=== PATIENT | female | born 1965 | race Caucasian/White ===

== ENCOUNTER → 2017-03-23 | Outpatient (CLI) | payer OTHER ==
[2017-03-23 16:51] LABS: ALANINE AMINOTRANSFERASE 27 U/L (9-52); ALBUMIN 4.3 g/dL (3.5-5.0); ALKALINE PHOSPHATASE 100 U/L (38-126); ANION GAP 12 (5-19); ASPARTATE AMINO TRANSFERASE 19 U/L (14-36); BILIRUBIN,DIRECT 0.4 mg/dL (0.0-0.4); BILIRUBIN,TOTAL 0.6 mg/dL (0.2-1.3); BLOOD UREA NITROGEN 9 mg/dL (7-20); CALCIUM 9.8 mg/dL (8.4-10.2); CARBON DIOXIDE 29 mmol/L (22-30); CHLORIDE 101 mmol/L (98-107); CHOLESTEROL 252.52 mg/dL (0-200); CREATINE KINASE 188 U/L (30-135); CREATININE RESULT 0.49 mg/dL (0.52-1.25); Direct HDL 72 mg/dL (>40); GLUCOSE 179 mg/dL (75-110); POTASSIUM 4.2 mmol/L (3.6-5.0); SODIUM 141.7 mmol/L (137-145); TOTAL PROTEIN 7.6 g/dL (6.3-8.2); TRIGLYCERIDES 135 mg/dL (<150)
[2017-03-23 17:03] LABS: DIRECT LDL 165 mg/dL (<100)
== END ==
LOC: OD 14:35
PROVIDERS: ATTEND Obstetrics & Gynecology
DX: I10 Essential (primary) hypertension (principal); E78.5 Hyperlipidemia, unspecified; E11.65 Type 2 diabetes mellitus with hyperglycemia
CPT/HCPCS: 36415; 80053; 80061; 81241; 82550

== ENCOUNTER → 2017-05-26 | Outpatient (CLI) | payer OTHER ==
[2017-05-26 14:15] LABS: ABSOLUTE EOSINOPHILS # (AUTO) 0.2 10^3/uL (0.0-0.6); ABSOLUTE LYMPHOCYTES (AUTO) 2.4 10^3/uL (0.5-4.7); ABSOLUTE MONOCYTES (AUTO) 0.5 10^3/uL (0.1-1.4); ABSOLUTE NEUT (AUTO) 5.4 10^3/uL (1.7-8.2); BASOPHILS % (AUTO) 0.6 % (0-2); EOSINOPHILS % (AUTO) 1.8 % (0-6); HEMATOCRIT 39.9 % (36.0-47.0); HEMOGLOBIN 13.8 g/dL (12.0-15.5); HGB HCT DIFFERENCE 1.5; LYMPHOCYTES % (AUTO) 27.8 % (13-45); MEAN CORPUSCULAR HEMOGLOBIN 28.9 pg (27.0-33.4); MEAN CORPUSCULAR HGB CONC 34.5 g/dL (32.0-36.0); MEAN CORPUSCULAR VOLUME 84 fl (80-97); MONOCYTES % (AUTO) 6.3 % (3-13); RED BLOOD COUNT 4.77 10^6/uL (3.72-5.28); RED CELL DISTRIBUTION WIDTH 13.4 % (11.5-14.0); SEGMENTED NEUTROPHILS % (AUTO) 63.5 % (42-78); WHITE BLOOD COUNT 8.5 10^3/uL (4.0-10.5)
[2017-05-26 14:30] LABS: ALANINE AMINOTRANSFERASE 30 U/L (9-52); ALBUMIN 4.4 g/dL (3.5-5.0); ALKALINE PHOSPHATASE 86 U/L (38-126); ANION GAP 15 (5-19); ASPARTATE AMINO TRANSFERASE 11 U/L (14-36); BILIRUBIN,DIRECT 0.4 mg/dL (0.0-0.4); BILIRUBIN,TOTAL 0.5 mg/dL (0.2-1.3); BLOOD UREA NITROGEN 10 mg/dL (7-20); CARBON DIOXIDE 28 mmol/L (22-30); CHLORIDE 101 mmol/L (98-107); GLUCOSE 205 mg/dL (75-110); POTASSIUM 4.1 mmol/L (3.6-5.0); SODIUM 143.7 mmol/L (137-145); TOTAL PROTEIN 6.9 g/dL (6.3-8.2)
--- NOTE | 2017-05-26 14:43 | RADIOLOGY REPORT (SQ) ---
EXAM DESCRIPTION: CHEST PA/LATERAL COMPLETED DATE/TIME: 05/26/2017 2:17 pm REASON FOR STUDY: CHEST PAIN, UNSPECIFIED COMPARISON: 06/12/2013 EXAM PARAMETERS: NUMBER OF VIEWS: two views TECHNIQUE: Digital Frontal and Lateral radiographic views of the chest acquired. RADIATION DOSE: NA LIMITATIONS: none FINDINGS: LUNGS AND PLEURA: No opacities, masses or pneumothorax. No pleural effusion. MEDIASTINUM AND HILAR STRUCTURES: No masses or contour abnormalities. HEART AND VASCULAR STRUCTURES: Heart normal size. No evidence for failure. BONES: No acute findings. HARDWARE: None in the chest. OTHER: No other significant finding. IMPRESSION: NO SIGNIFICANT RADIOGRAPHIC FINDING IN THE CHEST. TECHNICAL DOCUMENTATION: JOB ID: [id number] [employer]- All Rights Reserved
== END ==
LOC: OD 13:10
PROVIDERS: ATTEND Obstetrics & Gynecology
DX: R07.9 Chest pain, unspecified (principal); R10.9 Unspecified abdominal pain; I25.2 Old myocardial infarction
CPT/HCPCS: 36415; 71020; 80053; 84484; 85025; 85379

== ENCOUNTER → 2019-04-16 | Outpatient (CLI) | payer BC ==
[2019-04-16 14:13] LABS: ANION GAP 12 (5-19); BLOOD UREA NITROGEN 10 mg/dL (7-20); CALCIUM 9.9 mg/dL (8.4-10.2); CARBON DIOXIDE 28 mmol/L (22-30); CHLORIDE 101 mmol/L (98-107); GLUCOSE 233 mg/dL (75-110); POTASSIUM 3.9 mmol/L (3.6-5.0)
== END ==
LOC: LAB 13:35
PROVIDERS: ATTEND Orthopaedic Surgery
DX: E10.9 Type 1 diabetes mellitus without complications (principal)
CPT/HCPCS: 36415; 80048

== ENCOUNTER 2019-07-14 17:35 | Inpatient (IN) | payer BC, OTHER ==
[2019-07-14] MEDS ORDERED: DIPH/PERTUSS(ACELL)/TETANUS VAC/PF 0.5 ML SYR (>=10YO) IM ONE (20:24)
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
[2019-07-14 20:57] LABS: ABSOLUTE BASOPHILS # (AUTO) 0.1 10^3/uL (0.0-0.2); ABSOLUTE EOSINOPHILS # (AUTO) 0.2 10^3/uL (0.0-0.6); ABSOLUTE LYMPHOCYTES (AUTO) 1.7 10^3/uL (0.5-4.7); ABSOLUTE MONOCYTES (AUTO) 0.5 10^3/uL (0.1-1.4); ABSOLUTE NEUT (AUTO) 4.7 10^3/uL (1.7-8.2); BASOPHILS % (AUTO) 1.2 % (0-2); EOSINOPHILS % (AUTO) 2.4 % (0-6); HEMATOCRIT 39.3 % (36.0-47.0); HEMOGLOBIN 12.8 g/dL (12.0-15.5); LYMPHOCYTES % (AUTO) 23.7 % (13-45); MEAN CORPUSCULAR HEMOGLOBIN 27.7 pg (27.0-33.4); MEAN CORPUSCULAR HGB CONC 32.7 g/dL (32.0-36.0); MEAN CORPUSCULAR VOLUME 85 fl (80-97); MONOCYTES % (AUTO) 7.1 % (3-13); PLATELET COUNT 386 10^3/uL (150-450); RED BLOOD COUNT 4.65 10^6/uL (3.72-5.28); RED CELL DISTRIBUTION WIDTH 13.7 % (11.5-14.0); SEGMENTED NEUTROPHILS % (AUTO) 65.6 % (42-78); TOTAL CELLS COUNTED % (AUTO) 100 %; WHITE BLOOD COUNT 7.2 10^3/uL (4.0-10.5)
[2019-07-14 21:20] LABS: ANION GAP 9 (5-19); BLOOD UREA NITROGEN 16 mg/dL (7-20); CALCIUM 9.7 mg/dL (8.4-10.2); CARBON DIOXIDE 33 mmol/L (22-30); CHLORIDE 99 mmol/L (98-107); GLUCOSE 181 mg/dL (75-110); POTASSIUM 4.2 mmol/L (3.6-5.0)
--- NOTE | 2019-07-14 21:28 | RADIOLOGY REPORT (SQ) ---
3 VIEWS OF LEFT FOOT EXAM DATE: 07/14/2019 8:20 PM [facility] [employer] HISTORY: infection in 2nd toe; gas? fracture?. COMPARISON: None. FINDINGS: There is soft tissue swelling with subcutaneous air along the distal second digit. There is erosion and fracture of the second distal phalanx. There is also a subacute fracture of the first proximal phalanx mild surrounding bridging callus. No foreign body. IMPRESSION: 1. Acute fracture of the second distal phalanx with erosive changes and overlying soft tissue swelling and subcutaneous air, which may represent osteomyelitis. 2. Subacute fracture of the first proximal phalanx.
--- NOTE | 2019-07-14 21:29 | RADIOLOGY REPORT (SQ) ---
EXAM DESCRIPTION: XR HAND 3 OR MORE VIEWS COMPLETED DATE/TME: 07/14/2019 20:20 CLINICAL HISTORY: 54 years, Female, previous fracture, swelling COMPARISON: None. NUMBER OF VIEWS: Three TECHNIQUE: Frontal, oblique, and lateral radiographs were obtained. LIMITATIONS: None. FINDINGS: Mild radiocarpal joint arthrosis. Questionable curvilinear lucency traversing the base of the fifth metacarpal, seen only on the frontal projection. There may be a tiny curvilinear ossific fragment located about the lateral aspect of the fifth metacarpal base, also only seen on the frontal projection. No additional osseous anomalies. IMPRESSION: Questionable age-indeterminate nondisplaced fracture involving the fifth metacarpal base. Correlate with point tenderness. Mild radiocarpal joint arthrosis. copyright 2010 [employer]- All Rights Reserved
[2019-07-14] MEDS ORDERED: PIPERACILLIN/TAZOBACTAM 3.375 GM VIAL IV ONE (21:35)
[2019-07-14] MEDS ORDERED: MAG HYDROX/AL HYDROX/SIMETH SUSP 30 ML UDCUP PO PRN (22:53)
[2019-07-14] MEDS ORDERED: DEXTROSE 50%-WATER 25 GM/50 ML DISP.SYRIN IV PRN ×2 (22:53)
[2019-07-14] MEDS ORDERED: GLUCAGON,HUMAN RECOMB 1 MG INJ IM PRN (22:53)
[2019-07-14] MEDS ORDERED: DEXTROSE 40% GEL 15 GM TUBE PO PRN ×2 (22:53)
[2019-07-14] MEDS ORDERED: ACETAMINOPHEN 325 MG TABLET PO PRN (22:53)
[2019-07-14] MEDS ORDERED: IPRATROPIUM/ALBUTEROL 0.5-2.5 MG/3 ML AMPUL NEB PRN (22:53)
[2019-07-14] MEDS ORDERED: NORMAL SALINE 1000 ML 1,000 ML IV ONE (22:55)
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
[2019-07-14] MEDS ORDERED: VANCOMYCIN HCL INJ 1000 MG VIAL IV ONE (23:05)
[2019-07-14] MEDS ORDERED: INSULIN GLARGINE,HUM.REC.ANLOG 1,000 UNIT/10 ML VIAL SUBCUT ONE (23:45)
[2019-07-15] MEDS: INSULIN LISPRO 100 UNIT/ML 3 ML VIAL SUBCUT SCH ×5 (02:33→23:16)
[2019-07-15] MEDS: HEPARIN SOD (PORCINE) 5,000 UNIT/ML 1 ML VIAL SUBCUT SCH ×3 (05:02→21:21)
[2019-07-15 06:13] LABS: ABSOLUTE BASOPHILS # (AUTO) 0.1 10^3/uL (0.0-0.2); ABSOLUTE EOSINOPHILS # (AUTO) 0.2 10^3/uL (0.0-0.6); ABSOLUTE LYMPHOCYTES (AUTO) 1.7 10^3/uL (0.5-4.7); ABSOLUTE MONOCYTES (AUTO) 0.8 10^3/uL (0.1-1.4); BASOPHILS % (AUTO) 1.3 % (0-2); HEMATOCRIT 35.1 % (36.0-47.0); HEMOGLOBIN 11.7 g/dL (12.0-15.5); LYMPHOCYTES % (AUTO) 25.2 % (13-45); MEAN CORPUSCULAR HEMOGLOBIN 27.5 pg (27.0-33.4); MEAN CORPUSCULAR HGB CONC 33.2 g/dL (32.0-36.0); MEAN CORPUSCULAR VOLUME 83 fl (80-97); MONOCYTES % (AUTO) 11.6 % (3-13); PLATELET COUNT 298 10^3/uL (150-450); RED BLOOD COUNT 4.24 10^6/uL (3.72-5.28); RED CELL DISTRIBUTION WIDTH 13.6 % (11.5-14.0); SEGMENTED NEUTROPHILS % (AUTO) 58.9 % (42-78); TOTAL CELLS COUNTED % (AUTO) 100 %; WHITE BLOOD COUNT 6.8 10^3/uL (4.0-10.5)
[2019-07-15] MEDS ORDERED: KETOROLAC TROMETHAMINE INJ/PF 30 MG/1 ML SDV IV PRN (07:48)
[2019-07-15] MEDS ORDERED: HYDRALAZINE HCL INJ/PF 20 MG/1 ML SDV IV PRN (07:48)
[2019-07-15] MEDS ORDERED: MORPHINE SULFATE 10 MG/ML INJ IV PRN ×3 (07:48→12:36)
--- NOTE | 2019-07-15 07:48 | PDOC H&P ---
History of Present Illness Admission Date/PCP: 07/14/19 23:03 ARMANDO HERNANDEZ MD Patient complains of: Toe ulcer History of Present Illness: VERONICA SHEPHERD is a 54 year old female with a past medical history of diabetes, diabetic neuropathy, hypertension, opiate dependent chronic pain and depression. She presents with several weeks of nonhealing ulcer to her second toe of the left foot. She has been treated with ciprofloxacin without improvement developing necrotic exudate she is prompted to seek evaluation emergency room where she is found to have gas in the tissues by imaging. She started on empiric antibiotics, surgery consulted and referred to the hospitalist for admission. Past Medical History Cardiac Medical History: Reports: Myocardial Infarction, Hyperlipidema, Hypertension Pulmonary Medical History: Denies: Tuberculosis Endocrine Medical History: Reports: Diabetes Mellitus Type 2, Obesity Renal/ Medical History: Reports: Nephrolithiasis Psychiatric Medical History: Reports: Depression Past Surgical History Past Surgical History: Reports: Appendectomy, Cardiac Catheterization, Section - x1, Cholecystectomy, Coronary Stent, Hysterectomy, Orthopedic Surgery - R shoulder, L hand Social History Information Source: Patient Lives with: Family Smoking Status: Never Smoker Electronic Cigarette use?: No Frequency of Alcohol Use: None Hx Recreational Drug Use: No Hx Prescription Drug Abuse: No - Advance Directive Resuscitation Status: Full Code Family History Family History: CAD Parental Family History Reviewed: Yes Children Family History Reviewed: Yes Sibling(s) Family History Reviewed.: Yes Medication/Allergy Home Medications: Lisinopril [Prinivil 10 mg Tablet] 10 mg PO DAILY 06/12/13 Lovastatin [Altoprev] 20 mg PO QHS 06/12/13 Morphine Sulfate [Morphine Sulfate ER] 30 mg PO BID 06/12/13 Oxycodone HCl/Acetaminophen [Percocet 10-325 mg Tablet] 10 - 325 mg PO BIDP PRN 06/12/13 Sertraline HCl 50 mg PO DAILY 06/12/13 Atorvastatin Calcium [Lipitor 80 mg Tablet] 80 mg PO DAILY 07/14/19 Hydrochlorothiazide [Hydrodiuril 25 mg Tablet] 25 mg PO DAILY 07/14/19 Insulin Glargine,Hum.rec.anlog [Lantus Insulin 100 Unit/mL Insulin Pen] 100 mg SUBCUT QHS 07/14/19 Morphine Sulfate [Morphine Ir 30 mg Tablet] 30 mg PO TID 07/14/19 Oxycodone HCl/Acetaminophen [Percocet 10-325 mg Tablet] 10 mg PO BID 07/14/19 Sertraline HCl [Zoloft 50 mg Tablet] 50 mg PO DAILY 07/14/19 Allergies/Adverse Reactions: Iodinated Contrast Media [IV Dye, Iodine Containing] Allergy (Verified 06/12/13 20:53) Review of Systems Constitutional: ABSENT: chills, fever(s), headache(s), weight gain, weight loss Eyes: ABSENT: visual disturbances Ears: ABSENT: hearing changes Cardiovascular: ABSENT: chest pain, dyspnea on exertion, edema, orthropnea, palpitations Respiratory: ABSENT: cough, hemoptysis Gastrointestinal: ABSENT: abdominal pain, constipation, diarrhea, hematemesis, hematochezia, nausea, vomiting Genitourinary: ABSENT: dysuria, hematuria Musculoskeletal: ABSENT: joint swelling Integumentary: ABSENT: rash, wounds Neurological: ABSENT: abnormal gait, abnormal speech, confusion, dizziness, focal weakness, syncope Psychiatric: ABSENT: anxiety, depression, homidical ideation, suicidal ideation Endocrine: ABSENT: cold intolerance, heat intolerance, polydipsia, polyuria Hematologic/Lymphatic: ABSENT: easy bleeding, easy bruising Physical Exam Vital Signs: Temp Pulse Resp BP Pulse Ox 98.2 F 65 16 143/79 H 98 07/15/19 00:54 07/15/19 02:00 07/15/19 00:54 07/15/19 00:54 07/15/19 00:54 Intake & Output 07/13/19 07/14/19 07/15/19 11:59 11:59 11:59 Intake Total 0 Balance 0 Weight 109.4 kg General appearance: PRESENT: mild distress, well-developed, well-nourished Head exam: PRESENT: atraumatic, normocephalic Eye exam: PRESENT: conjunctiva pink, EOMI, PERRLA. ABSENT: scleral icterus Ear exam: PRESENT: normal external ear exam Mouth exam: PRESENT: moist, tongue midline Neck exam: ABSENT: carotid bruit, JVD, lymphadenopathy, thyromegaly Respiratory exam: PRESENT: clear to auscultation xiomara. ABSENT: rales, rhonchi, wheezes Cardiovascular exam: PRESENT: RRR. ABSENT: diastolic murmur, rubs, systolic murmur Pulses: PRESENT: normal dorsalis pedis pul Vascular exam: PRESENT: normal capillary refill GI/Abdominal exam: PRESENT: normal bowel sounds, soft. ABSENT: distended, guarding, mass, organolmegaly, rebound, tenderness Rectal exam: PRESENT: deferred Extremities exam: PRESENT: full ROM, other - Plantar surface of the left second toe with a large necrotic ulcer and purulent discharge.. ABSENT: calf tenderness, clubbing, pedal edema Neurological exam: PRESENT: alert, awake, oriented to person, oriented to place, oriented to time, oriented to situation, CN II-XII grossly intact. ABSENT: motor sensory deficit Psychiatric exam: PRESENT: appropriate affect, normal mood. ABSENT: homicidal ideation, suicidal ideation Skin exam: PRESENT: dry, intact, warm. ABSENT: cyanosis, rash Results Laboratory Results: 07/15/19 05:51 07/14/19 20:43 07/14/19 07/14/19 07/15/19 20:43 20:43 05:51 WBC 7.2 6.8 RBC 4.65 4.24 Hgb 12.8 11.7 L Hct 39.3 35.1 L MCV 85 83 MCH 27.7 27.5 MCHC 32.7 33.2 RDW 13.7 13.6 Plt Count 386 298 Seg Neutrophils % 65.6 58.9 Sodium 141.1 Potassium 4.2 Chloride 99 Carbon Dioxide 33 H Anion Gap 9 BUN 16 Creatinine 0.68 Est GFR ( Amer) > 60 Glucose 181 H Calcium 9.7 Impressions: Foot X-Ray 07/14/19 20:20 IMPRESSION: 1. Acute fracture of the second distal phalanx with erosive changes and overlying soft tissue swelling and subcutaneous air, which may represent osteomyelitis. 2. Subacute fracture of the first proximal phalanx. Hand X-Ray 07/14/19 20:20 IMPRESSION: Questionable age-indeterminate nondisplaced fracture involving the fifth metacarpal base. Correlate with point tenderness. Mild radiocarpal joint arthrosis. copyright 2010 [employer]- All Rights Reserved Assessment and Plan - Diagnosis (1) Diabetes Is this a current diagnosis for this admission?: Yes Plan: Hold metformin, outpatient regiment of Humalog and Lantus (2) Hypertension Is this a current diagnosis for this admission?: Yes Plan: Outpatient regiment with hydralazine PRN (3) Chronic pain Is this a current diagnosis for this admission?: Yes Plan: Limit narcotics as unclear outpatient use. Trial Toradol (4) Osteomyelitis Qualifiers: Osteomyelitis type: unspecified type Osteomyelitis location: foot Laterality: left Qualified Code(s): M86.9 - Osteomyelitis, unspecified Is this a current diagnosis for this admission?: Yes Plan: Defer to surgery - Time Time Spent with patient: 25-34 minutes - Inpatient Certification Medical Necessity: Need Close Monitoring Due to Risk of Patient Decompensation
[2019-07-15] MEDS: HYDROCHLOROTHIAZIDE 25 MG TABLET PO SCH (09:34)
[2019-07-15] MEDS: SERTRALINE HCL 50 MG TABLET PO SCH (09:43)
[2019-07-15] MEDS: INSULIN GLARGINE,HUM.REC.ANLOG 1,000 UNIT/10 ML VIAL SUBCUT SCH ×2 (09:48→21:25)
[2019-07-15] MEDS ORDERED: OXYCODONE HCL PO SCH (10:00)
[2019-07-15] MEDS ORDERED: ACETAMINOPHEN PO SCH (10:00)
[2019-07-15] MEDS ORDERED: OXYCODONE-ACETAMINOPHEN 5-325 MG TABLET PO SCH (10:00)
[2019-07-15] MEDS ORDERED: OXYCODONE HCL IR 5 MG TABLET PO SCH (10:00)
--- NOTE | 2019-07-15 10:47 | RADIOLOGY REPORT (SQ) ---
EXAM DESCRIPTION: CHEST SINGLE VIEW COMPLETED DATE/TIME: 07/15/2019 10:40 am REASON FOR STUDY: chest congestion COMPARISON: None. NUMBER OF VIEWS: One view. TECHNIQUE: Single frontal radiographic view of the chest acquired. LIMITATIONS: None. FINDINGS: LUNGS AND PLEURA: No opacities, masses or pneumothorax. No pleural effusion. MEDIASTINUM AND HILAR STRUCTURES: No masses. Contour normal. HEART AND VASCULAR STRUCTURES: Heart normal in size. Normal vasculature. BONES: No acute findings. HARDWARE: None in the chest. OTHER: No other significant finding. IMPRESSION: NO SIGNIFICANT RADIOGRAPHIC FINDING IN THE CHEST. TECHNICAL DOCUMENTATION: JOB ID: [id number] [employer]- All Rights Reserved Reading location - IP/workstation name: [email or web address]
[2019-07-15] MEDS ORDERED: MIDAZOLAM 2 MG/2 ML INJ ONE (11:09)
[2019-07-15] MEDS ORDERED: FENTANYL CITRATE INJ/PF 100 MCG/2 ML AMPUL ONE ×2 (11:09→12:43)
[2019-07-15] MEDS ORDERED: PROPOFOL INJ 200 MG/20 ML VIAL IV ONE (11:09)
--- NOTE | 2019-07-15 11:13 | PDOC PROGRESS REPORT ---
Subjective Progress Note for:: 07/15/19 Subjective:: This is a 54 year old female with a past medical history of diabetes, diabetic neuropathy, hypertension, opiate dependent chronic pain and depression who presented with several weeks of nonhealing ulcer to her second toe of the left foot. She has failed outpatient ciprofloxacin. X-ray shows a toe fracture and possible osteomyelitis. She received vancomycin and Zosyn on admission patient was evaluated by surgery and is scheduled for amputation. No acute event overnight. Upon encounter this morning, she appears comfortable. Denies chest pain or shortness of breath. She does complain of sore throat. She is going for toe amputation soon. Reason For Visit: FOOT CELLULITIS,DM,HTN Physical Exam Vital Signs: Temp Pulse Resp BP Pulse Ox 98.7 F 71 17 143/79 H 96 07/15/19 08:53 07/15/19 08:53 07/15/19 08:53 07/15/19 08:53 07/15/19 08:53 Intake & Output 07/14/19 07/15/19 07/16/19 06:59 06:59 06:59 Intake Total 0 Balance 0 Weight 241 lb 2.971 oz General appearance: PRESENT: no acute distress, well-developed, well-nourished Head exam: PRESENT: atraumatic, normocephalic Eye exam: PRESENT: conjunctiva pink, EOMI, PERRLA. ABSENT: scleral icterus Ear exam: PRESENT: normal external ear exam Mouth exam: PRESENT: moist, tongue midline Neck exam: ABSENT: carotid bruit, JVD, lymphadenopathy, thyromegaly Respiratory exam: PRESENT: clear to auscultation xiomara. ABSENT: rales, rhonchi, wheezes Cardiovascular exam: PRESENT: RRR. ABSENT: diastolic murmur, rubs, systolic murmur Pulses: PRESENT: normal dorsalis pedis pul GI/Abdominal exam: PRESENT: normal bowel sounds, soft. ABSENT: distended, guarding, mass, organolmegaly, rebound, tenderness Rectal exam: PRESENT: deferred Musculoskeletal exam: PRESENT: other - Grossly swollen and tender second toe, left foot with chronic ulcer Neurological exam: PRESENT: alert, awake, oriented to person, oriented to place, oriented to time, oriented to situation, CN II-XII grossly intact. ABSENT: motor sensory deficit Results Laboratory Results: 07/15/19 05:51 07/14/19 20:43 07/14/19 07/14/19 07/15/19 20:43 20:43 05:51 WBC 7.2 6.8 RBC 4.65 4.24 Hgb 12.8 11.7 L Hct 39.3 35.1 L MCV 85 83 MCH 27.7 27.5 MCHC 32.7 33.2 RDW 13.7 13.6 Plt Count 386 298 Seg Neutrophils % 65.6 58.9 Sodium 141.1 Potassium 4.2 Chloride 99 Carbon Dioxide 33 H Anion Gap 9 BUN 16 Creatinine 0.68 Est GFR ( Amer) > 60 Glucose 181 H Calcium 9.7 Impressions: Foot X-Ray 07/14/19 20:20 IMPRESSION: 1. Acute fracture of the second distal phalanx with erosive changes and overlying soft tissue swelling and subcutaneous air, which may represent osteomyelitis. 2. Subacute fracture of the first proximal phalanx. Hand X-Ray 07/14/19 20:20 IMPRESSION: Questionable age-indeterminate nondisplaced fracture involving the fifth metacarpal base. Correlate with point tenderness. Mild radiocarpal joint arthrosis. copyright 2011 [employer]- All Rights Reserved Chest X-Ray 07/15/19 00:00 IMPRESSION: NO SIGNIFICANT RADIOGRAPHIC FINDING IN THE CHEST. Assessment and Plan - Diagnosis (1) Osteomyelitis Qualifiers: Osteomyelitis type: unspecified type Osteomyelitis location: foot Laterality: left Qualified Code(s): M86.9 - Osteomyelitis, unspecified Is this a current diagnosis for this admission?: Yes Plan: X-ray shows a toe fracture and possible osteomyelitis. She received vancomycin and Zosyn on admission patient was evaluated by surgery and is going for a toe a mputation soon. (2) Diabetes Is this a current diagnosis for this admission?: Yes Plan: Continue Humalog and Lantus. Will check an A1c. (3) Hypertension Is this a current diagnosis for this admission?: Yes Plan: Resume home meds. (4) Toe fracture, left Qualifiers: Encounter type: initial encounter Toe: lesser toe Fracture type: closed Phalanx: unspecified phalanx Fracture alignment: nondisplaced Qualified Code(s): S92.505A - Nondisplaced unspecified fracture of left lesser toe(s), initial encounter for closed fracture Is this a current diagnosis for this admission?: Yes - Time Time Spent with patient: 25-34 minutes
[2019-07-15] MEDS ORDERED: LIDOCAINE 1% INJ-PF (10 MG/ML) 30 ML SDV ONE (11:23)
[2019-07-15] MEDS ORDERED: BUPIVACAINE HCL 0.5 % INJ/PF 30 ML SDV ONE (11:23)
[2019-07-15] MEDS ORDERED: BUPIVACAINE HCL 0.25 % INJ/PF (2.5 MG/1 ML) 30 ML VIAL ONE (11:23)
[2019-07-15] MEDS ORDERED: OXYCODONE-ACETAMINOPHEN 5-325 MG TABLET PO PRN ×2 (11:48)
[2019-07-15] MEDS ORDERED: PROMETHAZINE HCL INJ 25 MG/1 ML VIAL IV PRN ×2 (11:48)
[2019-07-15] MEDS ORDERED: ONDANSETRON HCL INJ/PF 4 MG/2 ML SDV IV PRN (11:48)
[2019-07-15] MEDS ORDERED: DIPHENHYDRAMINE HCL 50 MG/ML VIAL IV PRN (11:48)
[2019-07-15] MEDS ORDERED: MEPERIDINE HCL/PF INJ 25 MG/1 ML DISP.SYRIN IV PRN (11:48)
[2019-07-15] MEDS ORDERED: FENTANYL CITRATE INJ/PF 100 MCG/2 ML AMPUL IV PRN ×3 (11:48)
--- NOTE | 2019-07-15 12:02 | EKG REPORT ---
SEVERITY:- NORMAL ECG - SINUS RHYTHM : Confirmed by: Joann Fournier MD 15-Jul-2019 12:01:38
[2019-07-15] MEDS ORDERED: VANCOMYCIN HCL 1,000 MG in DEXTROSE 5%-WATER 250 ML IV ONE (12:30)
--- NOTE | 2019-07-15 12:43 | PDOC PROGRESS REPORT ---
Subjective Progress Note for:: 07/15/19 Subjective:: 54-year-old female with diabetes and a left second toe ulcer. She has evidence of necrosis, and purulent drainage from the toe. She has scheduled for surgery today. She has no other complaints. Reason For Visit: FOOT CELLULITIS,DM,HTN Physical Exam Vital Signs: Temp Pulse Resp BP Pulse Ox 98.7 F 71 17 143/79 H 96 07/15/19 08:53 07/15/19 08:53 07/15/19 08:53 07/15/19 08:53 07/15/19 08:53 Intake & Output 07/14/19 07/15/19 07/16/19 06:59 06:59 06:59 Intake Total 0 1000 Balance 0 1000 Weight 109.4 kg General appearance: PRESENT: no acute distress, cooperative Head exam: PRESENT: atraumatic, normocephalic Eye exam: PRESENT: EOMI, PERRLA. ABSENT: scleral icterus Mouth exam: PRESENT: moist, neck supple Neck exam: ABSENT: tenderness, thyromegaly, tracheal deviation Respiratory exam: ABSENT: chest wall tenderness Cardiovascular exam: PRESENT: RRR Pulses: PRESENT: normal radial pulses GI/Abdominal exam: PRESENT: soft. ABSENT: distended, firm, tenderness Rectal exam: PRESENT: deferred Extremities exam: PRESENT: other - Ulcer to the distal left second toe. Purulent drainage is evident on examination. There is necrotic appearing tissue present. Neurological exam: PRESENT: alert, awake, oriented to person, oriented to place, oriented to time, oriented to situation, CN II-XII grossly intact. ABSENT: motor sensory deficit Psychiatric exam: ABSENT: agitated, anxious, depressed Focused psych exam: ABSENT: delusional Skin exam: ABSENT: cyanosis, jaundice Results Laboratory Results: 07/15/19 05:51 07/14/19 20:43 07/14/19 07/14/19 07/15/19 20:43 20:43 05:51 WBC 7.2 6.8 RBC 4.65 4.24 Hgb 12.8 11.7 L Hct 39.3 35.1 L MCV 85 83 MCH 27.7 27.5 MCHC 32.7 33.2 RDW 13.7 13.6 Plt Count 386 298 Seg Neutrophils % 65.6 58.9 Sodium 141.1 Potassium 4.2 Chloride 99 Carbon Dioxide 33 H Anion Gap 9 BUN 16 Creatinine 0.68 Est GFR ( Amer) > 60 Glucose 181 H Calcium 9.7 Impressions: Foot X-Ray 07/14/19 20:20 IMPRESSION: 1. Acute fracture of the second distal phalanx with erosive changes and overlying soft tissue swelling and subcutaneous air, which may represent osteomyelitis. 2. Subacute fracture of the first proximal phalanx. Hand X-Ray 07/14/19 20:20 IMPRESSION: Questionable age-indeterminate nondisplaced fracture involving the fifth metacarpal base. Correlate with point tenderness. Mild radiocarpal joint arthrosis. copyright 2010 [employer]- All Rights Reserved Chest X-Ray 07/15/19 00:00 IMPRESSION: NO SIGNIFICANT RADIOGRAPHIC FINDING IN THE CHEST. Assessment & Plan - Diagnosis (1) Diabetic infection of left foot Is this a current diagnosis for this admission?: Yes - Time Time Spent with patient: Less than 15 minutes - Plan Summary Plan Summary: This is a 54-year-old female with evidence of ongoing infection of the left second toe. It is involving the entire second toe, but does not extend extensively onto the foot. I have recommended the left second toe amputation. She has agreed to this. Risks/benefits discussed, informed consent obtained, and all questions answered.
[2019-07-15] MEDS ORDERED: VANCOMYCIN HCL 0 MG in DEXTROSE 5%-WATER 250 ML IV NR (12:45)
--- NOTE | 2019-07-15 12:47 | Operative Report ---
Nonrecallable Operative Report DATE OF SURGERY: 07/15/19 PREOPERATIVE DIAGNOSIS: Infection of the left second toe POSTOPERATIVE DIAGNOSIS: Infection of left second toe, with evidence of osteomyelitis at surgery. OPERATION: Left second toe amputation (ray amputation). SURGEON: RACHEL AMIN ANESTHESIA: LMAC TISSUE REMOVED OR ALTERED: Left second toe deep tissue culture COMPLICATIONS: None apparent ESTIMATED BLOOD LOSS: Minimal PROCEDURE: Drains/implants: 4 x 4 packing as a wick. Procedure in detail: After informed consent was obtained, the patient was brought to the operating room and laid in the supine position. The area of the left foot was prepped and draped in a normal sterile fashion. An elliptical i ncision was created around the toe, extending onto the dorsum of the foot. Dissection was carried through the subcutaneous tissues to the joint. The toe was disarticulated from the joint, and removed from the patient. Next, the incision was carried cranially. The metatarsal head was divided using the large bone cutters. The metatarsal bone appeared healthy, without sign of osteomyelitis or infection. The distal toe was opened on the back table, and a deep tissue culture was sent. There was evidence of osteomyelitis at the distal aspect of the left second toe. The subcutaneous tissues were loosely approximated using 2-0 Vicryl suture. A wick was placed into the wound. A dressing was then placed, and the procedure was concluded. All sponge, instrument, and needle counts were correct x2. Condition: Stable.
[2019-07-15] MEDS ORDERED: ACETAMINOPHEN 1,000 MG/100 ML RTUPB IV ONE (13:17)
[2019-07-15] MEDS ORDERED: KETOROLAC TROMETHAMINE INJ/PF 30 MG/1 ML SDV ONE (13:17)
[2019-07-15] MEDS: KETOROLAC TROMETHAMINE INJ/PF 30 MG/1 ML SDV IV SCH ×2 (14:59→21:26)
[2019-07-15] MEDS: LISINOPRIL 10 MG TABLET PO SCH (15:04)
[2019-07-15] MEDS ORDERED: VANCOMYCIN HCL 1,250 MG in DEXTROSE 5%-WATER 250 ML IV SCH (18:00)
[2019-07-15] MEDS: HYDROCODONE/ACETAMINOPHEN 10-325 MG TABLET PO PRN (19:41)
[2019-07-15] MEDS: ATORVASTATIN CALCIUM 80 MG TABLET PO SCH (21:25)
[2019-07-15] MEDS: FAMOTIDINE 20 MG TABLET PO SCH (21:25)
[2019-07-16] MEDS: HEPARIN SOD (PORCINE) 5,000 UNIT/ML 1 ML VIAL SUBCUT SCH ×3 (05:21→21:37)
[2019-07-16] MEDS: VANCOMYCIN HCL 1,250 MG in DEXTROSE 5%-WATER 250 ML IV SCH ×2 (05:24→17:13)
[2019-07-16] MEDS: KETOROLAC TROMETHAMINE INJ/PF 30 MG/1 ML SDV IV SCH ×3 (05:24→21:41)
[2019-07-16 06:02] LABS: ABSOLUTE BASOPHILS # (AUTO) 0.1 10^3/uL (0.0-0.2); ABSOLUTE EOSINOPHILS # (AUTO) 0.2 10^3/uL (0.0-0.6); ABSOLUTE LYMPHOCYTES (AUTO) 1.9 10^3/uL (0.5-4.7); ABSOLUTE MONOCYTES (AUTO) 0.6 10^3/uL (0.1-1.4); ABSOLUTE NEUT (AUTO) 3.8 10^3/uL (1.7-8.2); BASOPHILS % (AUTO) 1.3 % (0-2); EOSINOPHILS % (AUTO) 3.7 % (0-6); HEMATOCRIT 34.6 % (36.0-47.0); HEMOGLOBIN 11.5 g/dL (12.0-15.5); MEAN CORPUSCULAR HEMOGLOBIN 27.7 pg (27.0-33.4); MEAN CORPUSCULAR HGB CONC 33.1 g/dL (32.0-36.0); MEAN CORPUSCULAR VOLUME 84 fl (80-97); MONOCYTES % (AUTO) 9.7 % (3-13); PLATELET COUNT 295 10^3/uL (150-450); RED BLOOD COUNT 4.15 10^6/uL (3.72-5.28); RED CELL DISTRIBUTION WIDTH 13.6 % (11.5-14.0); SEGMENTED NEUTROPHILS % (AUTO) 57.3 % (42-78); TOTAL CELLS COUNTED % (AUTO) 100 %; WHITE BLOOD COUNT 6.6 10^3/uL (4.0-10.5)
[2019-07-16] MEDS: INSULIN LISPRO 100 UNIT/ML 3 ML VIAL SUBCUT SCH ×4 (06:56→21:42)
[2019-07-16 08:33] LABS: ANION GAP 7 (5-19); BLOOD UREA NITROGEN 16 mg/dL (7-20); CALCIUM 8.5 mg/dL (8.4-10.2); CARBON DIOXIDE 30 mmol/L (22-30); CHLORIDE 104 mmol/L (98-107); GLUCOSE 128 mg/dL (75-110); POTASSIUM 3.9 mmol/L (3.6-5.0)
[2019-07-16] MEDS: INSULIN GLARGINE,HUM.REC.ANLOG 1,000 UNIT/10 ML VIAL SUBCUT SCH ×2 (09:10→21:42)
[2019-07-16] MEDS: LISINOPRIL 10 MG TABLET PO SCH (09:11)
[2019-07-16] MEDS: FAMOTIDINE 20 MG TABLET PO SCH ×2 (09:11→21:42)
[2019-07-16] MEDS: HYDROCODONE/ACETAMINOPHEN 10-325 MG TABLET PO PRN ×2 (09:11→17:12)
[2019-07-16] MEDS: SERTRALINE HCL 50 MG TABLET PO SCH (09:12)
[2019-07-16] MEDS: HYDROCHLOROTHIAZIDE 25 MG TABLET PO SCH (09:12)
--- NOTE | 2019-07-16 10:40 | PDOC PROGRESS REPORT ---
Subjective Progress Note for:: 07/16/19 Subjective:: Patient feels better, scared to look at her foot. Reason For Visit: FOOT CELLULITIS,DM,HTN Physical Exam Vital Signs: Temp Pulse Resp BP Pulse Ox 97.6 F 66 15 135/86 H 97 07/16/19 07:32 07/16/19 07:32 07/16/19 07:32 07/16/19 07:32 07/16/19 07:32 Intake & Output 07/15/19 07/16/19 07/17/19 06:59 06:59 06:59 Intake Total 0 2780 Output Total 5 Balance 0 2775 Weight 109.4 kg General appearance: PRESENT: no acute distress Musculoskeletal exam: PRESENT: other - Foot dressing removed. Operative site clean, no foul smell or drainage. Packing removed. Operative site irrigated with saline, and gently repacked with portion of Xeroform. 4 x 4's Kerlix reapplied. Results Laboratory Results: 07/16/19 05:33 07/16/19 05:33 07/16/19 07/16/19 05:33 05:33 WBC 6.6 RBC 4.15 Hgb 11.5 L Hct 34.6 L MCV 84 MCH 27.7 MCHC 33.1 RDW 13.6 Plt Count 295 Seg Neutrophils % 57.3 Sodium 140.7 Potassium 3.9 Chloride 104 Carbon Dioxide 30 Anion Gap 7 BUN 16 Creatinine 0.63 Est GFR ( Amer) > 60 Glucose 128 H Calcium 8.5 Impressions: Foot X-Ray 07/14/19 20:20 IMPRESSION: 1. Acute fracture of the second distal phalanx with erosive changes and overlying soft tissue swelling and subcutaneous air, which may represent osteomyelitis. 2. Subacute fracture of the first proximal phalanx. Hand X-Ray 07/14/19 20:20 IMPRESSION: Questionable age-indeterminate nondisplaced fracture involving the fifth metacarpal base. Correlate with point tenderness. Mild radiocarpal joint arthrosis. copyright 2011 [employer]- All Rights Reserved Chest X-Ray 07/15/19 00:00 IMPRESSION: NO SIGNIFICANT RADIOGRAPHIC FINDING IN THE CHEST. Assessment & Plan - Diagnosis (1) Diabetic infection of left foot Is this a current diagnosis for this admission?: Yes Plan: Impression: Patient is 1 day status post left second toe amputation, with wound partially closed, doing well, no signs of persisting sepsis. Recommendations: 1. Start dressing changes; ordered today 2. We will get patient up with surgical sandal left foot. 3. Anticipate discharge home in the next 24 to 48hours from a surgical standpoint - Time Time Spent with patient: 15-24 minutes Smoking Cessation Education: 3 to 10 minutes
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
[2019-07-16] MEDS: ATORVASTATIN CALCIUM 80 MG TABLET PO SCH (21:42)
[2019-07-17] MEDS: VANCOMYCIN HCL 1,250 MG in DEXTROSE 5%-WATER 250 ML IV SCH (05:11)
[2019-07-17] MEDS: HEPARIN SOD (PORCINE) 5,000 UNIT/ML 1 ML VIAL SUBCUT SCH (05:11)
[2019-07-17] MEDS: KETOROLAC TROMETHAMINE INJ/PF 30 MG/1 ML SDV IV SCH (05:12)
[2019-07-17 06:31] LABS: ABSOLUTE BASOPHILS # (AUTO) 0.1 10^3/uL (0.0-0.2); ABSOLUTE EOSINOPHILS # (AUTO) 0.4 10^3/uL (0.0-0.6); ABSOLUTE LYMPHOCYTES (AUTO) 1.9 10^3/uL (0.5-4.7); ABSOLUTE MONOCYTES (AUTO) 0.6 10^3/uL (0.1-1.4); ABSOLUTE NEUT (AUTO) 4.9 10^3/uL (1.7-8.2); BASOPHILS % (AUTO) 0.7 % (0-2); EOSINOPHILS % (AUTO) 4.8 % (0-6); HEMOGLOBIN 11.7 g/dL (12.0-15.5); LYMPHOCYTES % (AUTO) 23.6 % (13-45); MEAN CORPUSCULAR HEMOGLOBIN 27.7 pg (27.0-33.4); MEAN CORPUSCULAR HGB CONC 33.4 g/dL (32.0-36.0); MEAN CORPUSCULAR VOLUME 83 fl (80-97); PLATELET COUNT 313 10^3/uL (150-450); RED BLOOD COUNT 4.22 10^6/uL (3.72-5.28); RED CELL DISTRIBUTION WIDTH 13.6 % (11.5-14.0); SEGMENTED NEUTROPHILS % (AUTO) 62.9 % (42-78); TOTAL CELLS COUNTED % (AUTO) 100 %; WHITE BLOOD COUNT 7.9 10^3/uL (4.0-10.5)
--- NOTE | 2019-07-17 08:36 | PDOC PROGRESS REPORT ---
Subjective Progress Note for:: 07/17/19 Reason For Visit: FOOT CELLULITIS,DM,HTN left 2nd toe diabetic infection Physical Exam Vital Signs: Temp Pulse Resp BP Pulse Ox 98.2 F 61 18 107/41 L 100 07/17/19 00:00 07/17/19 07:00 07/17/19 00:00 07/17/19 00:00 07/17/19 00:00 Intake & Output 07/16/19 07/17/19 07/18/19 06:59 06:59 06:59 Intake Total 2780 1350 Output Total 5 Balance 2775 1350 Weight 110.1 kg General appearance: PRESENT: no acute distress Head exam: PRESENT: normocephalic Eye exam: PRESENT: EOMI Ear exam: PRESENT: normal external ear exam Mouth exam: PRESENT: moist Neck exam: PRESENT: full ROM Respiratory exam: PRESENT: clear to auscultation xiomara Cardiovascular exam: PRESENT: RRR Pulses: PRESENT: normal radial pulses, normal femoral pulses Vascular exam: PRESENT: normal capillary refill GI/Abdominal exam: PRESENT: soft Rectal exam: PRESENT: deferred Extremities exam: PRESENT: full ROM, other - amputation site clean, sl open Musculoskeletal exam: PRESENT: full ROM Neurological exam: PRESENT: alert, awake, oriented to person, oriented to place Psychiatric exam: PRESENT: appropriate affect Skin exam: PRESENT: dry Results Laboratory Results: 07/17/19 06:08 07/16/19 05:33 07/16/19 07/17/19 05:33 06:08 WBC 7.9 RBC 4.22 Hgb 11.7 L Hct 35.0 L MCV 83 MCH 27.7 MCHC 33.4 RDW 13.6 Plt Count 313 Seg Neutrophils % 62.9 Sodium 140.7 Potassium 3.9 Chloride 104 Carbon Dioxide 30 Anion Gap 7 BUN 16 Creatinine 0.63 Est GFR ( Amer) > 60 Glucose 128 H Calcium 8.5 Impressions: Foot X-Ray 07/14/19 20:20 IMPRESSION: 1. Acute fracture of the second distal phalanx with erosive changes and overlying soft tissue swelling and subcutaneous air, which may represent osteomyelitis. 2. Subacute fracture of the first proximal phalanx. Hand X-Ray 07/14/19 20:20 IMPRESSION: Questionable age-indeterminate nondisplaced fracture involving the fifth metacarpal base. Correlate with point tenderness. Mild radiocarpal joint arthrosis. copyright 2010 [employer]- All Rights Reserved Chest X-Ray 07/15/19 00:00 IMPRESSION: NO SIGNIFICANT RADIOGRAPHIC FINDING IN THE CHEST. Assessment & Plan - Time Time Spent with patient: 35 or more minutes - Plan Summary Plan Summary: s/p amputation of left 2nd toe doing well ok to dc home on po cipro f/u in 1 wk in surgery clinic wet to dry dresiing changes bid with ns gauze
[2019-07-17] MEDS: INSULIN LISPRO 100 UNIT/ML 3 ML VIAL SUBCUT SCH (09:05)
[2019-07-17] MEDS: LISINOPRIL 10 MG TABLET PO SCH (09:06)
[2019-07-17] MEDS: HYDROCODONE/ACETAMINOPHEN 10-325 MG TABLET PO PRN (09:06)
[2019-07-17] MEDS: HYDROCHLOROTHIAZIDE 25 MG TABLET PO SCH (09:06)
[2019-07-17] MEDS: INSULIN GLARGINE,HUM.REC.ANLOG 1,000 UNIT/10 ML VIAL SUBCUT SCH (09:06)
[2019-07-17] MEDS: FAMOTIDINE 20 MG TABLET PO SCH (09:06)
[2019-07-17] MEDS: SERTRALINE HCL 50 MG TABLET PO SCH (09:06)
[2019-07-17 10:29] VITALS: BP 143/79
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
== END 2019-07-17 11:27 | disposition home or self-care (01) | DRG 256 ==
LOC: ER 17:35 → EH 23:03 → 4S 07-15 00:22
PROVIDERS: ADMIT Internal Medicine; ATTEND Internal Medicine
PROC: 3E0234Z Introduction of Serum, Toxoid and Vaccine into Muscle, Percutaneous Approach (ICD-10-PCS; 2019-07-14)
PROC: 0Y6S0Z0 Detachment at Left 2nd Toe, Complete, Open Approach (ICD-10-PCS; principal; 2019-07-15 11:00)
DX: I96 Gangrene, not elsewhere classified (principal); M86.9 Osteomyelitis, unspecified; F11.20 Opioid dependence, uncomplicated; E11.621 Type 2 diabetes mellitus with foot ulcer; S92.505A Nondisplaced unspecified fracture of left lesser toe(s), initial encounter for closed fracture; E11.40 Type 2 diabetes mellitus with diabetic neuropathy, unspecified; E11.52 Type 2 diabetes mellitus with diabetic peripheral angiopathy with gangrene; E11.69 Type 2 diabetes mellitus with other specified complication; V89.2XXA Person injured in unspecified motor-vehicle accident, traffic, initial encounter; F32.9 Major depressive disorder, single episode, unspecified; L97.523 Non-pressure chronic ulcer of other part of left foot with necrosis of muscle; E78.5 Hyperlipidemia, unspecified; I10 Essential (primary) hypertension; E66.9 Obesity, unspecified; G89.29 Other chronic pain; I25.2 Old myocardial infarction; Z90.49 Acquired absence of other specified parts of digestive tract; Z95.5 Presence of coronary angioplasty implant and graft; Z79.4 Long term (current) use of insulin; Z91.041 Radiographic dye allergy status; Z79.84 Long term (current) use of oral hypoglycemic drugs; Z23 Encounter for immunization
CPT/HCPCS: 01480; 36415; 71045; 80048; 82962; 83036; 85025; 87070; 87075; 87077; 87186; 87205; 87880; 88305; 88311; 90471; 90715; 93005; 93010; 96365; 99285; J0131; J1815; J1885; J2250; J2543; J2704; J3010; J3370; J3490; J7030; J7060

== ENCOUNTER → 2019-09-10 | Outpatient (CLI) | payer BC ==
--- NOTE | 2019-09-10 14:50 | RADIOLOGY REPORT (SQ) ---
EXAM DESCRIPTION: FOOT LEFT COMPLETE COMPLETED DATE/TIME: 09/10/2019 2:34 pm REASON FOR STUDY: NON-PRS CHRONIC ULCER OTH PRT LEFT FOOT W FAT LAYER EXPOSED L97.522 NON-PRS CHRON IC ULCER OTH PRT LEFT FOOT W FAT LAYER COMPARISON: 07/14/2019 NUMBER OF VIEWS: Three views. TECHNIQUE: AP, lateral and oblique radiographic images acquired of the left foot. LIMITATIONS: None. FINDINGS: MINERALIZATION: Normal. BONES: Postsurgical changes from the 2nd distal metatarsal and phalanx amputation. Irregular distal cortex and fluffy heterotopic ossification, possibly postsurgical. Healing changes of the midshaft 1 st proximal phalanx fracture. Calcaneal plantar and superior enthesophytes. JOINTS: No dislocation. Midfoot osteophytosis. SOFT TISSUES: Soft tissue swelling about the forefoot. OTHER: No other significant finding. IMPRESSION: 1. Postsurgical changes from the 2nd distal metatarsal and phalanx amputation. Fluffy heterotopic ossification and cortical irregularity about the distal 2nd metatarsal, possibly postsurg ical although osteomyelitis is not excluded. 2. Healing changes at the 1st digit proximal phalanx fracture. TECHNICAL DOCUMENTATION: JOB ID: [id number] [employer]- All Rights Reserved Reading location - IP/workstation name: [email or web address]
== END ==
LOC: OD 14:20
PROVIDERS: ATTEND Surgery
DX: L97.522 Non-pressure chronic ulcer of other part of left foot with fat layer exposed (principal); S92.512D Displaced fracture of proximal phalanx of left lesser toe(s), subsequent encounter for fracture with routine healing; X58.XXXD Exposure to other specified factors, subsequent encounter

== ENCOUNTER → 2019-09-17 | Outpatient (CLI) | payer BC ==
[2019-09-17 14:14] LABS: ABSOLUTE BASOPHILS # (AUTO) 0.1 10^3/uL (0.0-0.2); ABSOLUTE EOSINOPHILS # (AUTO) 0.1 10^3/uL (0.0-0.6); ABSOLUTE LYMPHOCYTES (AUTO) 2.4 10^3/uL (0.5-4.7); ABSOLUTE MONOCYTES (AUTO) 0.5 10^3/uL (0.1-1.4); BASOPHILS % (AUTO) 1.3 % (0-2); EOSINOPHILS % (AUTO) 1.8 % (0-6); HEMATOCRIT 38.6 % (36.0-47.0); LYMPHOCYTES % (AUTO) 29.3 % (13-45); MEAN CORPUSCULAR HEMOGLOBIN 27.8 pg (27.0-33.4); MEAN CORPUSCULAR HGB CONC 33.7 g/dL (32.0-36.0); MEAN CORPUSCULAR VOLUME 83 fl (80-97); MONOCYTES % (AUTO) 6.3 % (3-13); PLATELET COUNT 296 10^3/uL (150-450); RED BLOOD COUNT 4.68 10^6/uL (3.72-5.28); RED CELL DISTRIBUTION WIDTH 14.7 % (11.5-14.0); SEGMENTED NEUTROPHILS % (AUTO) 61.3 % (42-78); TOTAL CELLS COUNTED % (AUTO) 100 %; WHITE BLOOD COUNT 8.1 10^3/uL (4.0-10.5)
[2019-09-17 14:53] LABS: ERYTHROCYTE SEDIMENTATION RATE 39 mm/hr (0-30)
[2019-09-17 14:54] LABS: ALBUMIN 4.1 g/dL (3.5-5.0); ALKALINE PHOSPHATASE 80 U/L (38-126); ANION GAP 7 (5-19); ASPARTATE AMINO TRANSFERASE 19 U/L (14-36); BILIRUBIN,TOTAL 0.4 mg/dL (0.2-1.3); BLOOD UREA NITROGEN 14 mg/dL (7-20); C-REACTIVE PROTEIN 19.7 mg/L (<10.0); CALCIUM 9.6 mg/dL (8.4-10.2); CARBON DIOXIDE 32 mmol/L (22-30); CHLORIDE 99 mmol/L (98-107); GLUCOSE 260 mg/dL (75-110); POTASSIUM 4.3 mmol/L (3.6-5.0); TOTAL PROTEIN 7.4 g/dL (6.3-8.2)
== END ==
LOC: WC 13:48
PROVIDERS: ATTEND Surgery
DX: E11.621 Type 2 diabetes mellitus with foot ulcer (principal); L97.522 Non-pressure chronic ulcer of other part of left foot with fat layer exposed
CPT/HCPCS: 36415; 80053; 85025; 85652; 86140

== ENCOUNTER → 2019-09-27 | Outpatient (CLI) | payer BC ==
--- NOTE | 2019-09-28 09:14 | RADIOLOGY REPORT (SQ) ---
EXAM DESCRIPTION: MRI LT LOWER EXTREMITY WITHOUT COMPLETED DATE/TIME: 09/27/2019 5:12 pm REASON FOR STUDY: L97.522 NON-PRS CHRONIC ULCER OTH PRT LEFT FOOT W FAT LAYER EXPOSED L97.522 NON-P RS CHRONIC ULCER OTH PRT LEFT FOOT W FAT LAYER COMPARISON: None. TECHNIQUE: Multiplanar imaging of the left forefoot to include fat and fluid sensitive sequences. LIMITATIONS: None. FINDINGS: BONE MARROW: There has been amputation of the 2nd phalanx. There is a defect in the 2nd m etatarsal head with associated marrow edema to midshaft. There is edema associated with oblique nondisplaced fracture of the proximal 1st phalanx. SOFT TISSUES: Cellulitis. No abscess. OTHER: No other significant finding. IMPRESSION: 1. Osteomyelitis head of the 2nd metatarsal. 2. Nondisplaced fracture proximal 1st phalanx. TECHNICAL DOCUMENTATION: JOB ID: [id number] 2010 [employer]- All Rights Reserved Reading location - IP/workstation name: [email or web address]
== END ==
LOC: RAD 15:31
PROVIDERS: ATTEND Surgery
DX: L97.522 Non-pressure chronic ulcer of other part of left foot with fat layer exposed (principal)

== ENCOUNTER → 2019-10-23 | Outpatient (CLI) | payer BC ==
[2019-10-23 14:25] LABS: ABSOLUTE BASOPHILS # (AUTO) 0.1 10^3/uL (0.0-0.2); ABSOLUTE EOSINOPHILS # (AUTO) 0.2 10^3/uL (0.0-0.6); ABSOLUTE LYMPHOCYTES (AUTO) 1.8 10^3/uL (0.5-4.7); ABSOLUTE MONOCYTES (AUTO) 0.5 10^3/uL (0.1-1.4); BASOPHILS % (AUTO) 0.8 % (0-2); EOSINOPHILS % (AUTO) 1.9 % (0-6); HEMATOCRIT 39.4 % (36.0-47.0); HEMOGLOBIN 13.3 g/dL (12.0-15.5); LYMPHOCYTES % (AUTO) 21.1 % (13-45); MEAN CORPUSCULAR HEMOGLOBIN 28.2 pg (27.0-33.4); MEAN CORPUSCULAR HGB CONC 33.7 g/dL (32.0-36.0); MEAN CORPUSCULAR VOLUME 84 fl (80-97); MONOCYTES % (AUTO) 5.6 % (3-13); PLATELET COUNT 295 10^3/uL (150-450); RED BLOOD COUNT 4.72 10^6/uL (3.72-5.28); RED CELL DISTRIBUTION WIDTH 14.6 % (11.5-14.0); SEGMENTED NEUTROPHILS % (AUTO) 70.6 % (42-78); TOTAL CELLS COUNTED % (AUTO) 100 %; WHITE BLOOD COUNT 8.5 10^3/uL (4.0-10.5)
--- NOTE | 2019-10-23 14:36 | RADIOLOGY REPORT (SQ) ---
EXAM DESCRIPTION: FOOT LEFT COMPLETE COMPLETED DATE/TIME: 10/23/2019 1:58 pm REASON FOR STUDY: NON-PRS CHRONIC ULCER OTH PRT LEFT FOOT W FAT LAYER EXPOSED L97.522 NON-PRS CHRON IC ULCER OTH PRT LEFT FOOT W FAT LAYER E11.621 TYPE 2 DIABETES MELLITUS WITH FOOT ULCER COMPARISON: 09/10/2019 NUMBER OF VIEWS: Three views. TECHNIQUE: AP, lateral and oblique radiographic images acquired of the left foot. LIMITATIONS: None. FINDINGS: MINERALIZATION: Normal. BONES: No acute fracture or dislocation. There is amputation of the 2nd digit from the distal 2nd me tatarsal. There is no evidence of osteomyelitis. No significant interval change. JOINTS: No effusions. SOFT TISSUES: No soft tissue swelling. No foreign body. OTHER: No other significant finding. IMPRESSION: There is no evidence of osteomyelitis. TECHNICAL DOCUMENTATION: JOB ID: [id number] 2010 [employer]- All Rights Reserved Reading location - IP/workstation name: [email or web address]
[2019-10-23 15:02] LABS: ALKALINE PHOSPHATASE 95 U/L (38-126); ANION GAP 11 (5-19); ASPARTATE AMINO TRANSFERASE 21 U/L (14-36); BILIRUBIN,DIRECT 0.3 mg/dL (0.0-0.4); BILIRUBIN,TOTAL 0.3 mg/dL (0.2-1.3); BLOOD UREA NITROGEN 14 mg/dL (7-20); C-REACTIVE PROTEIN 13.9 mg/L (<10.0); CALCIUM 9.3 mg/dL (8.4-10.2); CARBON DIOXIDE 31 mmol/L (22-30); CHLORIDE 97 mmol/L (98-107); GLUCOSE 202 mg/dL (75-110); POTASSIUM 4.5 mmol/L (3.6-5.0)
[2019-10-23 15:04] LABS: TOTAL PROTEIN 7.2 g/dL (6.3-8.2)
[2019-10-23 15:07] LABS: ERYTHROCYTE SEDIMENTATION RATE 37 mm/hr (0-30)
== END ==
LOC: WC 13:17
PROVIDERS: ATTEND Nurse Practitioner Family
DX: E11.621 Type 2 diabetes mellitus with foot ulcer (principal); L97.522 Non-pressure chronic ulcer of other part of left foot with fat layer exposed
CPT/HCPCS: 36415; 80053; 85025; 85652; 86140

== ENCOUNTER → 2019-11-07 | Outpatient (CLI) | payer BC ==
--- NOTE | 2019-11-07 16:16 | RADIOLOGY REPORT (SQ) ---
EXAM DESCRIPTION: FOOT LEFT COMPLETE IMAGES COMPLETED DATE/TIME: 11/07/2019 3:44 pm REASON FOR STUDY: .S/P 2ND AMPUTATION,F/U MRI OSTEOMYELITIS Z89.422 ACQUIRED ABSENCE OF OTHER LEFT TOE(S) COMPARISON: 10/23/2019 NUMBER OF VIEWS: Three views. TECHNIQUE: AP, lateral and oblique radiographic images acquired of the left foot. LIMITATIONS: None. FINDINGS: MINERALIZATION: Normal. BONES: Unchanged postsurgical changes from the distal 2nd metatarsal and phalangeal amputation. No d efinitive evidence of osteomyelitis. Unchanged sclerosis through the proximal 1st metatarsal compati ble prior fracture. No new bony abnormality. JOINTS: No dislocation. SOFT TISSUES: Expected postoperative changes from the 2nd digit amputation. OTHER: No other significant finding. IMPRESSION: Stable changes from the 2nd distal metatarsal and phalangeal amputation. No new definit sara evidence of of osteomyelitis. Unchanged nondisplaced healing fracture of the proximal 1st phalanx. TECHNICAL DOCUMENTATION: JOB ID: [id number] 2010 [email or web address]- All Rights Reserved Reading location - IP/workstation name: [email or web address]
== END ==
LOC: OD 15:32
PROVIDERS: ATTEND Obstetrics & Gynecology
DX: M86.8X7 Other osteomyelitis, ankle and foot (principal); S92.515D Nondisplaced fracture of proximal phalanx of left lesser toe(s), subsequent encounter for fracture with routine healing; X58.XXXD Exposure to other specified factors, subsequent encounter; Z89.422 Acquired absence of other left toe(s)